=== PATIENT | female | born 1985 | race Caucasian/White ===

== ENCOUNTER → 2017-03-20 | Emergency (ER) | payer OTHER, BC ==
[2017-03-20 08:05] VITALS: BP 105/56; PULSE 99; TEMP 98.8; BMI 32.2
== END | disposition home or self-care (01) ==
LOC: JER 07:51 → MERGE 07:51
DX: O99.89 Other specified diseases and conditions complicating pregnancy, childbirth and the puerperium (principal); Z04.1 Encounter for examination and observation following transport accident; R10.30 Lower abdominal pain, unspecified; V49.88XA Car occupant (driver) (passenger) injured in other specified transport accidents, initial encounter; Y92.488 Other paved roadways as the place of occurrence of the external cause; Y93.89 Activity, other specified; Y99.8 Other external cause status; Z3A.32 32 weeks gestation of pregnancy
CPT/HCPCS: 99281-25